=== PATIENT | male | born 1990 | race Caucasian/White ===

== ENCOUNTER → 2021-10-11 | Outpatient (CLI) | payer OTHER ==
[~2021-10-11] MED LIST: IBUPROFEN600 MG PO; OMEPRAZOLE20 M1 PO; PERCOCET 10-321 EACH PO
== END ==
LOC: KOH-I 14:36
DX: R07.9 Chest pain, unspecified (principal)
CPT/HCPCS: 71046

== ENCOUNTER → 2021-11-15 | Outpatient (CLI) | payer OTHER | LOC: US 11-09 09:00 | DX: R94.5 Abnormal results of liver function studies (principal); K76.0 Fatty (change of) liver, not elsewhere classified | CPT/HCPCS: 76705 ==

== ENCOUNTER → 2021-12-14 | Outpatient (CLI) | payer OTHER | LOC: HEART 5 11:00 | DX: R07.9 Chest pain, unspecified (principal) ==

== ENCOUNTER → 2022-02-10 | Outpatient (CLI) | payer OTHER | LOC: SLEEP 09:43 | DX: R06.83 Snoring (principal) | CPT/HCPCS: 95810 ==